=== PATIENT | male | born 1960 | race Caucasian/White ===

== ENCOUNTER → 2017-03-01 08:12 | Outpatient (CLI) | payer MEDICARE, BC ==
[2015-08-12 14:15] VITALS: BMI 27.2
[~2017-03-01 08:12] MED LIST: ADVAIR 250/501 DISK INH; ASCORBIC ACID500 MG PO; COREG12.5 MG PO; COUMADIN5 MG PO; CRESTOR20 MG PO; DULERA 100 MCG8.8 GM INH; DUONEB 2.5-0.5 M3 ML UPD; EXFORGE HCT 101 EAC2 PO; FISH OIL 1,0001 CA1 PO; IBUPROFEN800 MG PO; IPRAT-ALBUT 0.5-3 ML UPD; K-TAB10 MEQ PO; LASIX40 MG PO; LEVAQUIN500 MG PO; MEDROL DOSE PACK4 MG PO; MOTRIN800 MG PO; MUCINEX DM ER1 EAC1 PO; NORVASC10 MG PO; PREDNISONE50 MG PO; PRINIVIL20 MG; PRINIVIL20 MG PO; PRINZIDE 20/12.1 TAB PO; PROTONIX40 MG PO; VALTREX1000 MG PO; VENTOLIN HFA18 GM INH; VITAMIN C1000 MG PO; VITAMIN D31000 UNI2 PO
== END | disposition home or self-care (01) ==
LOC: D.MRI 08:12
DX: M87.9 Osteonecrosis, unspecified (principal)

== ENCOUNTER → 2017-03-08 20:37 | Outpatient (CLI) | payer MEDICARE, BC ==
[2015-08-12 14:15] VITALS: BMI 27.2
== END | disposition home or self-care (01) ==
LOC: D.LABREF 20:37
DX: M87.9 Osteonecrosis, unspecified (principal); Z11.8 Encounter for screening for other infectious and parasitic diseases

== ENCOUNTER 2017-05-22 11:30 | Inpatient (IN) | payer MEDICARE, BC ==
[~2017-05-22] VITALS: Ht 182.9 cm; Wt 91.8 kg
[~2017-05-22 11:30] MED LIST changes: +MAGNESIUM GLUC500 M1 PO; +MYSOLINE 50 MG50 MG PO; +OMEPRAZOLE40 MG PO; +POTASSIUM99 M1 PO; +PRAVACHOL40 MG PO
[2017-05-24 08:57] LABS: BASOPHILS 0.3 % (0-2); EOSINOPHILS 1.9 % (0-7); HEMOGLOBIN 14.2 g/dL (13.5-17.5); IMMATURE GRANULOCYTES 0.1 % (0-5); LYMPHOCYTES 21.5 % (15-50); MCH 31.8 pg (26.0-34.0); MCHC 34.6 g/dL (31.0-37.0); MCV 91.9 fL (80.0-100.0); MEAN PLATELET VOLUME 9.5 fL (7.4-10.4); MONOCYTES 8.4 % (2-11); NEUTROPHILS 67.8 % (40-80); PLATELET COUNT 195 10x3/uL (130-400); RBC 4.46 10x6/uL (4.20-6.10); RDW 13.1 % (11.5-14.5); WBC 7.4 10x3/uL (4.8-10.8)
[2017-05-24 08:59] LABS: APPEARANCE CLEAR (CLEAR); BILIRUBIN NEGATIVE (NEGATIVE); COLOR YELLOW (YELLOW); GLUCOSE NEGATIVE (NEGATIVE); KETONE NEGATIVE (NEGATIVE); LEUKOCYTE ESTERASE NEGATIVE (NEGATIVE); NITRITE NEGATIVE (NEGATIVE); PROTEIN NEGATIVE (NEGATIVE); UROBILINOGEN NORMAL (NORMAL)
[2017-05-24 09:05] LABS: CARBON DIOXIDE 28.2 mmol/L (21.0-32.0); CREATININE - SERUM 1.1 mg/dL (0.6-1.3); POTASSIUM - SERUM 4.2 mmol/L (3.5-5.1)
[2017-05-24 09:06] LABS: APTT 25.2 SECONDS (22.8-39.4); INR 0.91 (0.85-1.17); PROTIME 12.1 SECONDS (11.6-15.0)
[2017-05-29] VITALS (12 sets, daily range): BP systolic 120–149; BP diastolic 52–94; Ht 182.9 cm; Wt 91.8 kg
--- NOTE | 2017-05-29 10:05 | NUR ---
PATIENT RECEIVED TO FLOOR FROM PACU VIA BED WITH STAFF. NO SIGNS OF DISTRESS NOTED. VITAL SIGNS STABLE. PATIENT AND FAMILY ORIENTED TO ROOM. REPOSITIONED IN BED. DRESSING TO LEFT HIP CLEAN, DRY AND INTACT. ICE PACK IN PLACE. SCDS ON BILATERALLY. YELLOW FALL RISK BAND PLACED ON PATIENT. INCENTIVE SPIROMETER AND TEACHING PROVIDED TO PATIENT. STATES UNDERSTANDING. SIDE RAILS UP X2. BED IN LOW POSITION. CALL LIGHT IN REACH. BED ALARM ON. DENIES NEEDS.
--- NOTE | 2017-05-29 12:50 | NUR ---
PATIENT ALERT IN BED. NO SIGNS OF DISTRESS NOTED. C/O PAIN 04/29. NORCO PER PRN ORDER. REPOSITIONED IN BED FOR COMFORT. PILLOW PLACED BENEATH LEFT SIDE. WELL TOLERATED. DENIES NEEDS. FAMILY PRESENT. SIDE RAILS UP X2. BED IN LOW POSITION. CALL LIGHT IN REACH.
--- NOTE | 2017-05-29 15:00 | NUR ---
PATIENT RESTING WITH EYES CLOSED. RESPIRATIONS EVEN AND UNLABORED. SIDE RAILS UP X2. BED IN LOW POSITION. CALL LIGHT IN REACH. BED ALARM ON.
--- NOTE | 2017-05-29 17:24 | NUR ---
PATIENT ALERT IN BED. C/O PAIN 02/27. 1 TAB NORCO ADMINISTERED PER PRN ORDER. SIDE RAILS UP X2. BED IN LOW POSITION. CALL LIGHT IN REACH.
--- NOTE | 2017-05-29 19:52 | NUR ---
REC'D. IN BEDEYES CLOSED RESP. DEEP AND EVEN.DRSG. DRY AND INTACT TO RT. HIP. FOOT PINK AND WARM PEDAL PULSE PRESENT. WILL CONTINUE TO MONITOR FOR ANY CHGES. IN NEURO/VASCULAR STATUS AND FOLLOW CURRENT PLAN OF CARE.
[2017-05-30] VITALS: BP 126/64
[2017-05-30 04:00] VITALS: BP 121/65
[2017-05-30 05:25] LABS: HEMATOCRIT 37.1 % (42.0-54.0); HEMOGLOBIN 12.7 g/dL (13.5-17.5); MCH 31.4 pg (26.0-34.0); MCHC 34.2 g/dL (31.0-37.0); MCV 91.8 fL (80.0-100.0); MEAN PLATELET VOLUME 9.8 fL (7.4-10.4); RBC 4.04 10x6/uL (4.20-6.10); RDW 13.2 % (11.5-14.5); WBC 11.9 10x3/uL (4.8-10.8)
--- NOTE | 2017-05-30 07:45 | NUR ---
PT ASSESSMENT COMPLETE AWAKE AND ALERT ORIENTED X 3 LUNGS CLAER BILATERALLY VOICES ALL NEEDS OT STAFF DRY DRES NOTED TO LEFT HIP
[2017-05-30 08:08] VITALS: BP 141/66
--- NOTE | 2017-05-30 10:55 | NUR ---
* Is the patient Alert and Oriented? Yes 0 * How many steps to enter\exit or inside your home? ramp 0 * PCP KIRSTIE 0 * Pharmacy [facility] [address] 0 * Preadmission Environment Home with Family 0 * ADLs Independent 0 * Equipment None 0 * List name and contact numbers for known caregivers / representatives who currently or will assist patient after discharge: SANTIAGO ARREOLA (GIRLFRIEND) [phone] 0 * Community resources currently utilized None 0 * Additional services required to return to the preadmission environment? Yes 0 * Can the patient safely return to the preadmission environment? Yes 0 * Has this patient been hospitalized within the prior 30 days at any hospital? No 0 Grand Total: 0
--- NOTE | 2017-05-30 11:00 | NUR ---
Patient Name: JERRICA BISWAS Admission Status: Elective Accout number: [id number] Admission Date: 05-29-2017 : 1960 Admission Diagnosis:UNILATERAL PRIMARY OSTEOARTHRITIS, LEFT HIP Attending: FREDDIE Current LOS: 1 Anticipated DC Date: Planned Disposition: Home or Self Care Primary Insurance: MEDICARE A & B Discharge Planning Comments: CM met with patient to assess discharge plan. Patient lives with his girlfriend Vicky who will be the one to take him home. Patient currently lives independently where there is a ramp to enter his home. I spoke with Alexus at [facility] and she stated that the patient has already had a bedside commode and walker. Patient states that he does not have it anymore. CM will continue to assist with this. CM will continue to follow and assist with discharge planning needs. PCP: [facility] [address] [place] [phone] Director Of Learning: Ally Wang
[2017-05-30 12:00] VITALS: BP 117/63
--- NOTE | 2017-05-30 12:25 | NUR ---
PATIENT SITTING UP IN CHAIR WITH IV INTACT. NO COMPLAINTS AT THIS TIME. FAMILY AT BEDSIDE. CALL LIGHT WITHIN REACH.
--- NOTE | 2017-05-30 13:49 | NUR ---
PT WAS UP FOR SEVERAL HOURS IN CHAIR AT BEDSIDE PER THERAPY. BACK TO BED AT THIS TIME PER THERAPY TOLERATED WELL PAIN TREATED PER ORDER.
[2017-05-30 16:32] VITALS: BP 109/61; BP 117/73
--- NOTE | 2017-05-30 19:31 | NUR ---
REC'D. IN BED DRSG DRY AND INTACT TO LEFT HIP. FOOT PINK AND WARM PEDAL PULSE PRESENT.WIGGLES TOES AND DORSIFLEXES WITHOUT DIFFICULTY.WILL CONTINUE TO MONITOR FOR ANY CHGES.IN NEUROVASCULAR STATUS AND FOLLOW CURRENT PLAN OF CARE
[2017-05-30 20:00] VITALS: BP 133/63
[2017-05-31] VITALS: BP 122/69
--- NOTE | 2017-05-31 00:36 | NUR ---
EYES CLOSED RESPIRATIONS WITH EASE AND UNLABORED. SR UP X2 CALL LIGHT WITHIN REACH.
[2017-05-31 04:00] VITALS: BP 127/67
[2017-05-31 05:51] LABS: HEMATOCRIT 34.9 % (42.0-54.0); HEMOGLOBIN 11.7 g/dL (13.5-17.5); MCH 31.1 pg (26.0-34.0); MCHC 33.5 g/dL (31.0-37.0); MCV 92.8 fL (80.0-100.0); MEAN PLATELET VOLUME 9.7 fL (7.4-10.4); RBC 3.76 10x6/uL (4.20-6.10); RDW 13.5 % (11.5-14.5)
[2017-05-31 05:54] LABS: WBC 8.6 10x3/uL (4.8-10.8)
--- NOTE | 2017-05-31 07:52 | NUR ---
SCHEDULED MEDICATIONS ADMINISTERED AT THIS TIME WELL PRN PERCOCET FOR PAIN. DRESSING TO LEFT HIP C/D/I. SCD'S ON AND IN WORKING ORDER PEDAL PULSES STRONG AND PALPABLE. AT BEDSIDE. IV TO RIGHT FOREARM SALINE LOCKED. DENIES FURTHER NEEDS AT THIS TIME. BED ALARM ON. WILL CONTINUE WITH PLAN OF CARE.
[2017-05-31 08:01] VITALS: BP 133/57
[2017-05-31] MEDS ORDERED: PERCOCET 10/3251 TA1 PO (08:14)
[2017-05-31] MEDS ORDERED: ELIQUIS2.5 MG PO (08:14)
--- NOTE | 2017-05-31 10:00 | NUR ---
UP IN CHAIR PER PHYSICAL THERAPY AT THIS TIME. DENIES NEEDS AT THIS TIME. CALL LIGHT IN REACH, WILL CONTINUE WITH PLAN OF CARE.
[2017-05-31 11:54] VITALS: BP 123/56
--- NOTE | 2017-05-31 13:45 | NUR ---
PATIENT BEING DISCHARGED TODAY. WALKER AT BEDSIDE, PATIENT SET UP WITH [facility] FOR MondayJUNE 02 @ 9:00AM. FAMILY AT BEDSIDE TO DRIVE PATIENT HOME IN PERSONAL CAR
--- NOTE | 2017-05-31 14:00 | NUR ---
GAUZE AND METIPORE TAPE REMOVED FROM LEFT HIP DRESSING. TAPE STUCK TO AQUACEL DRESSING, SO ENTIRE DRESSING REMOVED AND REPLACED WITH NEW AQUACEL AG DRESSING USING STERILE TECNIQUE. PT TOLERATED WITHOUT COMPLAINTS. PRN PERCOCET ADMINISTERED FOR PAIN AT THIS TIME. WILL D/C HOME WITH . IV TO RIGHT FOREARM D/C WITH CATH TIP INTACT.
== END 2017-05-31 14:09 | disposition home or self-care (01) | DRG 470 ==
LOC: D.SDCHOLD 05-24 09:00 → D.MS 05-29 05:00 → D.SDCHOLD 05-29 05:00 → D.MS 05-29 09:42
PROVIDERS: ADMIT Orthopaedic Surgery
PROC: 0SRB0JZ Replacement of Left Hip Joint with Synthetic Substitute, Open Approach (ICD-10-PCS; principal; 2017-05-29 07:30)
DX: M16.12 Unilateral primary osteoarthritis, left hip (principal); M90.552 Osteonecrosis in diseases classified elsewhere, left thigh; I10 Essential (primary) hypertension; J44.9 Chronic obstructive pulmonary disease, unspecified; F17.200 Nicotine dependence, unspecified, uncomplicated

== ENCOUNTER 2017-11-23 11:17 | Day surgery (SDC) | payer MEDICARE, BC ==
[~2017-11-23] VITALS: Ht 182.9 cm; Wt 100.0 kg
--- NOTE | ~2017-11-23 | OP ---
PATIENT NAME: JERRICA HERNANDEZ MEDICAL RECORD: [id number] :58 LOCATION:D.OPS ADMISSION DATE: SURGEON: REBECCA DANIELSON MD DATE OF OPERATION: 11/23/2017 PROCEDURE: Colonoscopy with biopsy and polypectomy. REFERRING PHYSICIAN: La Nena Thacker MD INDICATIONS: Mr. Hernandez is a very pleasant 57-year-old gentleman with a history of dyspepsia, "grumbling stomach" and colon polyps. His last colonoscopy was 08/12/2015 with finding showing moderate pandiverticulosis coli, 8 colorectal polyps status post polypectomy (tubular adenomas and hyperplastic). He presents for outpatient surveillance colonoscopy. PREMEDICATIONS: Total IV anesthesia (COPD) propofol 250 mg. INSTRUMENT: Reflex video colonoscope. PROCEDURE AND FINDINGS: After receiving informed consent, Mr. Stoddard was placed in left lateral decubitus position and sedated as per anesthesia. After achieving an adequate level of sedation, digital rectal exam was performed that showed no external hemorrhoidal tags, fissures or fistulas, normal sphincter tone, no palpable rectal masses. Colonoscope was introduced per rectally and advanced to the cecum. The cecum, IC valve, and appendiceal orifice were identified. As the colonoscope was withdrawn, careful inspection was made of the gu of the colon. Overall mucosa had normal vascular and fold pattern. There were diverticula seen scattered throughout the colon including the cecum, but none were seen in the rectum. There was minimal patchy erythema in the ascending colon and biopsies were obtained to rule out microscopic colitis. In the distal descending colon, was a 0.5 to 0.75 cm sessile polyp removed with hot biopsy forcep technique. Retroflexion of the rectum showed [id number] internal hemorrhoids. A good prep was present. Mr. Hernandez tolerated the procedure well, no immediate complications. ASSESSMENT: 1. Distal descending colon polyp status post polypectomy. 2. Minimal nonspecific colitis involving ascending colon, may be prep related, rule out microscopic colitis. 3. Moderate pandiverticulosis coli. 4. [id number] internal hemorrhoids. 5. Dyspepsia. RECOMMENDATIONS: 1. Continue Pepcid 40 mg twice a day. 2. Avoid aspirin, nonsteroidal anti-inflammatory drugs and ORTEGA-2 inhibitors for 14 days post polypectomy. 3. High fiber diet. 4. Surveillance colonoscopy in 3 years. 5. Right upper quadrant ultrasound. TRANSINT:[id number] Voice Confirmation ID: [id number] DOCUMENT ID: [id number] OPERATIVE REPORT [id number] JERRICA HERNANDEZ TERRI MD at 1925 CC: LA NENA THACKER MD [id number] DICTATION DATE: 11/23/17 1508 PRACTICE ASSISTANT: 11/23/17 1543 DEP SDC 11/23/17 [place] [id number] [place] [id number]
[~2017-11-23 11:17] MED LIST changes: +ELIQUIS2.5 MG PO; +PERCOCET 10/3251 TA1 PO
[2017-11-23 12:06] LABS: CALC OSMOLALITY 275 mosm/kg (275-300); CALCIUM 9.2 mg/dL (8.5-10.1); CARBON DIOXIDE 28.7 mmol/L (21.0-32.0); CHLORIDE - SERUM 101 mmol/L (98-107); GLUCOSE 98 mg/dL (74-106); POTASSIUM - SERUM 3.8 mmol/L (3.5-5.1); SODIUM 139 mmol/L (136-145); UREA NITROGEN 6 mg/dL (7-18); eGFR NON AFRICAN AMERICAN 81 mL/min (90-120)
[2017-11-23 13:18] LABS: HEMATOCRIT 44.8 % (42.0-54.0); HEMOGLOBIN 15.4 g/dL (13.5-17.5); MCH 32.2 pg (26.0-34.0); MCHC 34.4 g/dL (31.0-37.0); MCV 93.5 fL (80.0-100.0); MEAN PLATELET VOLUME 10.3 fL (7.4-10.4); RBC 4.79 10x6/uL (4.20-6.10); RDW 13.5 % (11.5-14.5); WBC 6.5 10x3/uL (4.8-10.8)
[2017-11-23] MEDS ORDERED: PEPCID40 MG PO (13:21)
[2017-11-23 13:32] VITALS: BP 140/79; Ht 182.9 cm; Wt 100.0 kg
== END 2017-11-23 15:41 | disposition home or self-care (01) ==
LOC: D.OPS 11:17
PROVIDERS: Anesthesiology
DX: Z12.11 Encounter for screening for malignant neoplasm of colon (principal); Z86.010 Personal history of colon polyps; R10.13 Epigastric pain; K64.8 Other hemorrhoids; K63.5 Polyp of colon; F17.200 Nicotine dependence, unspecified, uncomplicated; I10 Essential (primary) hypertension; J44.9 Chronic obstructive pulmonary disease, unspecified; Z01.812 Encounter for preprocedural laboratory examination

== ENCOUNTER → 2017-11-27 08:11 | Outpatient (CLI) | payer MEDICARE, BC ==
[2017-11-23 13:32] VITALS: BMI 29.9
[~2017-11-27 08:11] MED LIST changes: +PEPCID40 MG PO
== END | disposition home or self-care (01) ==
LOC: D.US 08:11
DX: Z86.010 Personal history of colon polyps (principal); R10.9 Unspecified abdominal pain

== ENCOUNTER → 2018-12-06 10:20 | Outpatient (CLI) | payer MEDICARE, BC ==
[2017-11-23 13:32] VITALS: BMI 29.9
== END | disposition home or self-care (01) ==
LOC: D.RT 10:20
DX: J44.9 Chronic obstructive pulmonary disease, unspecified (principal)

== ENCOUNTER → 2018-12-18 13:53 | Outpatient (CLI) | payer MEDICARE, BC ==
[2017-11-23 13:32] VITALS: BMI 29.9
== END | disposition home or self-care (01) ==
LOC: D.MRI 13:53
DX: M54.16 Radiculopathy, lumbar region (principal)

== ENCOUNTER 2019-01-17 10:05 | Day surgery (SDC) | payer MEDICARE, BC ==
[~2019-01-17] VITALS: Ht 182.9 cm; Wt 102.7 kg
[2019-01-17 10:27] LABS: BASOPHILS 0.4 % (0-2); EOSINOPHILS 1.3 % (0-7); HEMATOCRIT 37.5 % (42.0-54.0); HEMOGLOBIN 13.2 g/dL (13.5-17.5); IMMATURE GRANULOCYTES 0.3 % (0-5); LYMPHOCYTES 23.4 % (15-50); MCH 32.1 pg (26.0-34.0); MCHC 35.2 g/dL (31.0-37.0); MCV 91.2 fL (80.0-100.0); MONOCYTES 11.9 % (2-11); NEUTROPHILS 62.7 % (40-80); PLATELET COUNT 209 10x3/uL (130-400); RBC 4.11 10x6/uL (4.20-6.10); WBC 6.9 10x3/uL (4.8-10.8)
[2019-01-17 10:46] LABS: CALCIUM 9.3 mg/dL (8.5-10.1); CARBON DIOXIDE 26.9 mmol/L (21.0-32.0); CREATININE - SERUM 1.3 mg/dL (0.6-1.3); POTASSIUM - SERUM 4.9 mmol/L (3.5-5.1)
[2019-01-17] MEDS ORDERED: LISINOPRIL-HCT1 EAC7 PO (11:11)
[2019-01-17] MEDS ORDERED: CHANTIX 1 MG TAB1 MG PO (11:12)
[2019-01-17 11:20] VITALS: BP 121/70; Ht 182.9 cm; Wt 102.7 kg
--- NOTE | 2019-01-17 14:50 | NUR ---
REC'D FROM GI LAB. FAMILY AT BEDSIDE. COFFEE AND ICE CREAM BROUGHT TO PT.
--- NOTE | 2019-01-17 15:20 | NUR ---
TOLERATED DIET. FAMILY AT BEDSIDE.
--- NOTE | 2019-01-17 15:50 | NUR ---
IV DC'D WITH CATHETER INTACT.
--- NOTE | 2019-01-17 16:05 | NUR ---
WRITTEN AND VERBAL DC INST. GIVEN TO PT. VERBALIZED UNDERSTANDING.
--- NOTE | 2019-01-17 16:15 | NUR ---
DC'D HOME WITH FAMILY VIA PRIVATE VEHICLE. TAKEN TO VEHICLE VIA WC. STABLE AT TIME OF DC.
--- NOTE | 2019-01-18 18:23 | OP ---
PATIENT NAME: JERRICA HERNANDEZ MEDICAL RECORD: [id number] :58 LOCATION:[facility] ADMISSION DATE: SURGEON: REBECCA DANIELSON MD DATE OF OPERATION: 01/17/2019 PROCEDURE: EGD with biopsy. REFERRING PHYSICIAN: La Nena Thacker MD INDICATIONS: Mr. Hernandez is a very pleasant 58-year-old gentleman with a history of epigastric pain, lower abdominal pain, and symptoms of "food not passing below his lower chest and throat." He has had no associated nausea or vomiting. He had a colonoscopy 11/23/2017, with findings showing distal descending colon polyp, minimal nonspecific colitis, moderate pandiverticulosis, and mild to moderate internal hemorrhoids. The duodenal polyp was hyperplastic in nature and ascending colon biopsies showed benign colonic mucosa. He last had an EGD 07/29/2015, with finding showing small hiatal hernia, erosive gastritis, mild antritis, duodenal bulb polyp (duodenal biopsies showed borderline minimal chronic duodenitis and antral biopsy showed mild incipient intestinal metaplasia, negative for H. pylori and the duodenal bulb polyp was a sessile hyperplastic polyp as was the gastric polyp. The gastric polyp was a hyperplastic fundal type polyp. He presents for outpatient EGD. PREMEDICATIONS: Total IV anesthesia (propofol 240 mg, history of COPD). INSTRUMENT: Vocollect video gastroscope. PROCEDURE AND FINDINGS: After informed consent, Mr. Hernandez's posterior pharynx was anesthetized with Cetacaine spray, placed in left lateral decubitus position and sedated as per anesthesia. After achieving adequate level of sedation, gastroscope was introduced per orally and advanced into the second portion of the duodenum without difficulty. The esophageal mucosa was without erythema, ulcers, strictures, or masses. The scope passed easily through the GE junction, but on reinspection there the lower esophageal sphincters seemed somewhat hypertensive (the distal esophageal mucosa blanched white). A small hiatal hernia is present. Biopsies were taken from the distal third of the esophagus. Gastric mucosa was notable for minimal prepyloric erythema and antral biopsies were obtained to rule out Helicobacter pylori. The body of the stomach mucosa had a mild nodular appearance and biopsies were obtained. The mucosa of the cardia and fundus appeared normal. Pylorus was patent and competent. In the second portion of duodenum was a small submucosal protrusion (appeared to be a lipoma), nonobstructive and biopsied (measured approximately 0.75-1 cm in size). The second portion of duodenal mucosa appeared normal, but biopsies were obtained to rule out celiac sprue (history of mild anemia). The scope was then withdrawn. Mr. Hernandez tolerated the procedure well, no immediate complications. ASSESSMENT: 1. 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 2. Small hiatal hernia. 3. Mild gastritis. 4. Duodenal lipoma. 5. Mild anemia. RECOMMENDATIONS: 1. Follow up histopathology. OPERATIVE REPORT [id number] ZULAYJERRICA ASHFORD 2. Pantoprazole 40 mg p.o. daily. 3. Continue famotidine 20 mg b.i.d. 4. Barium swallow. 5. To further evaluate possible hypertensive lower esophageal sphincter. 6. CT of the abdomen and pelvis (abdominal pain). 7. Daily Metamucil. TRANSINT:[id number] Voice Confirmation ID: [id number] DOCUMENT ID: [id number] REBECCA DANIELSON MD at 1823 CC: LA NENA THACKER [id number] DICTATION DATE: 01/17/19 1424 DIGITAL PERFORMANCE ANALYST: 01/17/19 1907 [facility] 01/17/19 [facility] [address] [place] [address]
== END 2019-01-17 16:15 | disposition home or self-care (01) ==
LOC: D.OPS 10:05
PROVIDERS: Anesthesiology; ATTEND Internal Medicine Gastroenterology
DX: K44.9 Diaphragmatic hernia without obstruction or gangrene (principal); K29.70 Gastritis, unspecified, without bleeding; D17.79 Benign lipomatous neoplasm of other sites; D64.9 Anemia, unspecified; Z01.812 Encounter for preprocedural laboratory examination

== ENCOUNTER → 2019-04-22 09:36 | Outpatient (CLI) | payer MEDICARE, BC ==
[2019-01-17 11:20] VITALS: BMI 30.7
[~2019-04-22 09:36] MED LIST changes: +CHANTIX 1 MG TAB1 MG PO; +LISINOPRIL-HCT1 EAC7 PO
== END | disposition home or self-care (01) ==
LOC: D.RAD 09:36
PROVIDERS: ATTEND Internal Medicine Gastroenterology
DX: R13.10 Dysphagia, unspecified (principal)

== ENCOUNTER → 2019-04-26 09:25 | Outpatient (CLI) | payer MEDICARE, BC ==
[2019-01-17 11:20] VITALS: BMI 30.7
== END | disposition home or self-care (01) ==
LOC: D.CT 09:25
PROVIDERS: ATTEND Internal Medicine Gastroenterology
DX: R10.9 Unspecified abdominal pain (principal)

== ENCOUNTER 2019-04-30 07:54 | Outpatient (CLI) | payer MEDICARE, BC ==
[2019-01-17 11:20] VITALS: BMI 30.7
== END 2019-04-30 09:06 | disposition home or self-care (01) ==
LOC: D.OPS 07:54
PROVIDERS: ATTEND Internal Medicine Gastroenterology
DX: R13.10 Dysphagia, unspecified (principal)

== ENCOUNTER → 2019-07-24 08:55 | Outpatient (CLI) | payer MEDICARE, BC ==
[2019-01-17 11:20] VITALS: BMI 30.7
== END | disposition home or self-care (01) ==
LOC: D.RT 08:55
PROVIDERS: ATTEND Internal Medicine Pulmonary Disease
DX: J44.9 Chronic obstructive pulmonary disease, unspecified (principal)